=== PATIENT | female | born 1965 | race Caucasian/White ===

== ENCOUNTER → 2017-05-20 | Outpatient (CLI) | payer OTHER | LOC: BRMIMAGING 10:43 | PROVIDERS: ATTEND Family Medicine | DX: Z12.31 Encounter for screening mammogram for malignant neoplasm of breast (principal); Z80.3 Family history of malignant neoplasm of breast | CPT/HCPCS: G0202 ==

== ENCOUNTER → 2018-05-26 | Outpatient (CLI) | payer OTHER | LOC: BRMIMAGING 10:54 | PROVIDERS: ATTEND Physician Assistant Surgical | DX: Z12.31 Encounter for screening mammogram for malignant neoplasm of breast (principal); Z80.3 Family history of malignant neoplasm of breast ==

== ENCOUNTER → 2019-05-30 | Outpatient (CLI) | payer OTHER | LOC: BRMIMAGING 10:43 ==